=== PATIENT | male | born 1975 | race Caucasian/White ===

== ENCOUNTER 2019-11-03 15:20 | Emergency (ER) | payer OTHER ==
[~2019-11-03 15:20] MED LIST: Lidocaine 1% PF 5 ML VIAL ONE; PROPOFOL 200 MG/20 ML VIAL ONE; Succinylcholine Chloride 20 MG/ML 10 ml SYRINGE FS ONE
[2019-11-03 16:14] LABS: Hemoglobin 17.6 g/dL (14.0-18.0); Mean Corpuscular HGB CONC 32.5 g/dL (32.0-36.0); Mean Corpuscular Hemoglobin 27.4 pg (27.0-31.0); Mean Corpuscular Volume 84.3 fL (78.0-98.0); RBC Distribution Width 11.8 % (11.5-14.5); Red Blood Cell (RBC) Count 6.44 mill/uL (4.70-6.10); White Blood Cell (WBC) Count 7.8 thou/uL (4.8-10.8)
[2019-11-03 16:36] LABS: Mean Platelet Volume 10.2 fL (7.4-10.4); Platelet Count 144 thou/uL (130-400)
[2019-11-03 16:37] LABS: Band 1 % (5-11); Eosinophils 9 % (0-10); Large Platelets SLIGHT; Lymphocytes 16 % (21-51); MDiff Complete? YES; Monocytes 4 % (0-10); Neutrophil 66 % (42-75); Platelet Morphology Comment Appears Adequate; Platelet Satellitism SLIGHT; RBC Morphology Normal; Reactive Lymphocytes 3 % (0-10)
[2019-11-03 16:42] LABS: ALT (SGPT) 54 U/L (8-55); AST (SGOT) 43 U/L (5-34); Albumin 4.7 g/dL (3.5-5.0); Alkaline Phosphatase 91 U/L (40-110); Anion Gap 17 mmol/L (10-20); BUN (Urea Nitrogen) 13 mg/dL (8.9-20.6); Bilirubin, Total 1.3 mg/dL (0.2-1.2); Calc. Creatinine Clearance 0 mL/min (70-130); Calcium 9.3 mg/dL (7.8-10.44); Carbon Dioxide 20 mmol/L (22-29); Chloride 108 mmol/L (98-107); Estimated GFR-MDRD Greater than 90; Globulin 3.2 g/dL (2.4-3.5); Glucose 92 mg/dL (70-105); Potassium 4.5 mmol/L (3.5-5.1); Protein, Total 7.9 g/dL (6.0-8.3); Sodium 140 mmol/L (136-145)
[2019-11-03] MEDS ORDERED: Fentanyl 100 MCG/2 ML VIAL ONE (18:54)
--- NOTE | 2019-11-03 20:49 | CON ---
DATE OF CONSULTATION: 11/03/2019 REASON FOR CONSULTATION: Dysphagia, food impaction in esophagus. HISTORY OF PRESENT ILLNESS: Mr. Laith Scott is a 43-year-old male, with history of intermittent dysphagia. Most of the time, the food hangs up in the esophagus and usually drink water, try to gag and cough and may see the food goes in after a while. Apparently, he was eating some meat last night. He had some steak and he felt the meat stuck to esophagus. He tried to gag and cough, but nothing was really making difference. He also tried to drink a lot of water, but the water keeps coming up. The patient waited for almost 24 hours before he came to the ER. At the present time, he appears very comfortable. He is not frothing at the mouth, coughing, or gagging. He appears very comfortable. Denies any chest discomfort. The patient has had acid reflux off and on, but the over the last several months , he has had numerous heartburn. He has had dysphagia to solid food off and on. Initially, the food hangs up in the esophagus and drinking water makes it to go down. Sometimes he will try to cough and gag and makes it to go down . He has no abdominal pain. He has no fever, no coughing. He has no relevant symptoms. ALLERGIES: NONE. SOCIAL HISTORY: He is a smoker, smokes less than half a packet of cigarettes per day. He does not drink any alcohol. MEDICAL ILLNESSES: None. PAST SURGICAL HISTORY: None. MEDICATIONS AT HOME: None. REVIEW OF SYSTEMS: A 10-point system review totally unremarkable. PHYSICAL EXAMINATION: GENERAL: He appears very comfortable. He is in no distress. He is not short winded. He is not frothing at the mouth or spitting up any mucus. VITAL SIGNS: His pulse is 67, blood pressure is 150/98. HEENT: Conjunctivae are clear. NECK: Supple. No adenitis or thyromegaly noted. CARDIOVASCULAR SYSTEM: Normal heart sounds. LUNGS: Clear to auscultation. ABDOMEN: Soft. No organomegaly. No tenderness. No masses. He tells me he feels a lump or a nodule over the periumbilical area. Denies any mass problems. There is no hernia. There is small nodule in the subcutaneous tissue in the right side of the abdomen, close to the umbilicus. EXTREMITIES: Reveal no edema. CLINICAL IMPRESSION: A 43-year-old male with food impaction of the esophagus. He has had dysphagia off and on. He never had seen a GI doctor before. He never had any doctor services. He mostly will have intermittent coughing and choking and drinking water make the food bolus to go down. This is the first time this food bolus got stuck down nicely and not able to pass it. Based on his history, I believe he most likely has peptic stricture. PLAN: EGD and removal of foreign body. I did talk to Mr. Scott about the risks like bleeding, perforation, sepsis, etc. He fully understood the information and agreeable for the EGD. Job ID: [id number] MTDD
--- NOTE | 2019-11-04 02:08 | OP ---
DATE OF PROCEDURE: 11/03/2019 OPERATIVE PROCEDURE: 1. Esophagogastroduodenoscopy. 2. Removal of solid foreign body using a snare. PREOPERATIVE DIAGNOSIS: Solid foreign body -- food impaction. POSTOPERATIVE DIAGNOSIS: Solid foreign body -- food impaction. DESCRIPTION OF PROCEDURE: The patient was placed on his back and was intubated and was given sedation by Anesthesia Department. A bite block was placed. Then, the patient was turned on left lateral position. A Pentax video gastroscope, under direct vision, passed down the oropharynx, past the GE junction, past the upper esophageal sphincter into the distal esophagus. The esophageal mucosa appeared normal. In the distal esophageal and GE junction, patient had a meat piece stuck nicely. A polypectomy snare was passed through the biopsy channel. The meat piece was grasped easily and removed. The meat piece is single one piece. The patient was re-scoped again. There was some mucosal edema, erythema, and mild oozing of blood at the site of impaction noted. It is probably from the prolonged meat impaction. Also mild narrowing seen. The scope advanced to stomach without resistance. Retroflexion failed to show any pathology in fundus or cardia. The gastric body and gastric antrum, no lesion seen. The duodenal bulb, descending duodenum, no lesion. The stomach was decompressed and the scope removed. No complications noted. DISCHARGE PLANNING: This is a 43-year-old male with dysphagia and foreign body infection. Apparently, patient was eating meat last night and the meat got stuck there. The patient did not come back for 24 hours after the meat impaction. He was seen in the ER and was taken to the endoscopy room and underwent EGD and removal of meat impaction. He did well postprocedure and being discharged. DISCHARGE INSTRUCTIONS: The patient was advised to be on a liquid diet for the rest of the day and start patient on mechanical soft diet tomorrow. The patient come back to me in couple of weeks for a repeat using dilation. Job ID: [id number]
== END 2019-11-03 18:49 | disposition admitted as inpatient to this hospital (09) ==
LOC: ERS 15:20
DX: T18.128A Food in esophagus causing other injury, initial encounter (principal); F17.210 Nicotine dependence, cigarettes, uncomplicated
CPT/HCPCS: 80053; 85025; 94760; 96374; J1610; J2704; J3010; J7620

== ENCOUNTER 2024-12-25 09:58 | Outpatient (CLI) | payer BC | END 2024-12-25 09:59 | disposition home or self-care (01) | LOC: BICRAD 09:58 | PROVIDERS: ATTEND Nurse Practitioner Family | DX: M25.511 Pain in right shoulder (principal) ==